=== PATIENT | female | born 1965 | race American Indian/Alaskan Native ===

== ENCOUNTER 2018-10-01 08:19 | Outpatient (CLI) | payer OTHER ==
--- NOTE | 2018-10-01 10:01 | Ultrasound Report ---
ULTRASOUND PELVIC COMPLETE ULTRASOUND TRANSVAGINAL HISTORY: Pelvic pain. COMPARISON: None. TECHNIQUE: Transabdominal and transvaginal ultrasound with color doppler interrogation. FINDINGS: Uterus: Anteverted. The uterus is enlarged measuring 13.4 x 6.0 x 7.6 cm. At least 2 fibroids are identified. A 3.8 x 2.6 x 4.4 cm intramural fibroid containing scattered calcifications is identified in the anterior fundus. A 3.9 x 3.5 x 3.5 cm hypoechoic subserosal fibroid is identified in the posterior fundus. Multiple smaller intramural fibroids are suspected. The cervix is unremarkable. Endometrium: 1.1 cm. No focal abnormality or fluid collection. Right ovary: Not visualized. Left ovary: 4.7 x 3.5 x 4.1 cm. A 3.3 x 2.4 x 2.7 cm simple cyst is identified in the left ovary. No pelvic fluid or mass is identified. Normal color doppler interrogation. IMPRESSION: Uterine fibroid disease as described. 3.3 cm left ovarian cyst. The right ovary is not visualized.
== END 2018-10-01 08:20 | disposition home or self-care (01) ==
LOC: US 08:19
PROVIDERS: ATTEND Obstetrics & Gynecology
DX: N83.202 Unspecified ovarian cyst, left side (principal)
CPT/HCPCS: 76830; 76856